=== PATIENT | male | born 1985 | race Caucasian/White ===

== ENCOUNTER 2024-05-29 01:57 | Emergency (ER) | payer BC ==
[~2024-05-29] VITALS: Ht 167.6 cm; Wt 80.0 kg
[2024-05-29 02:28] VITALS: O2SAT 100
[2024-05-29] MEDS ORDERED: BO1 TP (04:47)
[2024-05-29] MEDS: BACITRACIN ZINC OINT UDPKT TOP ONE (04:56)
[2024-05-29] MEDS: TETANUS, DIPHTHERIA, PERTUSSIS VAC/PF 0.5ML (>10YR OLD) IM ONE (04:56)
[2024-05-29] MEDS: IBUPROFEN 600MG TABLET PO ONE (04:56)
[2024-05-29 04:58] VITALS: BP 116/74; PULSE 72; RESP 12; TEMP 36.61404; O2SAT 100
== END 2024-05-29 04:59 | disposition home or self-care (01) ==
LOC: ER 01:57
DX: S61.412A Laceration without foreign body of left hand, initial encounter (principal); W26.8XXA Contact with other sharp object(s), not elsewhere classified, initial encounter; Y93.89 Activity, other specified; Y92.89 Other specified places as the place of occurrence of the external cause; Y99.8 Other external cause status
CPT/HCPCS: 90715; 12001; 90471; 99283; Z7610 ×3

== ENCOUNTER 2024-05-31 16:48 | Emergency (ER) | payer BC ==
[~2024-05-31] VITALS: Ht 167.6 cm; Wt 79.3 kg
[~2024-05-31 16:48] MED LIST: BO1 TP
[2024-05-31 16:57] VITALS: BP 132/84; RESP 16; TEMP 97.9; O2SAT 98
[2024-05-31 17:01] VITALS: PULSE 96; O2SAT 97
[2024-05-31] MEDS ORDERED: BO1 TP (17:30)
== END 2024-05-31 17:54 | disposition home or self-care (01) ==
LOC: ER 16:48
DX: S61.412D Laceration without foreign body of left hand, subsequent encounter (principal); Z48.00 Encounter for change or removal of nonsurgical wound dressing; X58.XXXD Exposure to other specified factors, subsequent encounter
CPT/HCPCS: 99282

== ENCOUNTER 2024-06-08 14:07 | Emergency (ER) | payer BC, MEDICAID ==
[~2024-06-08] VITALS: Ht 167.6 cm; Wt 83.0 kg
[2024-06-08 14:11] VITALS: O2SAT 99
[2024-06-08 14:14] VITALS: BP 129/91; PULSE 99; RESP 18; TEMP 97.9; O2SAT 98
== END 2024-06-08 17:07 | disposition home or self-care (01) ==
LOC: ER 14:27
DX: S61.412D Laceration without foreign body of left hand, subsequent encounter (principal); X58.XXXD Exposure to other specified factors, subsequent encounter; Z48.02 Encounter for removal of sutures
CPT/HCPCS: 99281